=== PATIENT | female | born 1975 | race Two or more races ===

== ENCOUNTER → 2016-11-24 | Outpatient (REF) ==
--- NOTE | 2016-11-25 03:14 | REP ---
Clinical: Pain and disability. Comparison: 04/25/2016. Technique: AP, lateral, and coned-down views of the lumbosacral spine. Findings: Mild to moderate multilevel degenerative disc osteophyte complexes are again noted most pronounced at the L3-4 level. Findings are essentially unchanged and include anterior spurring/osteophyte formation, endplate sclerosis, disc space narrowing and hypertrophic facet changes. Alignment and lordosis maintained. There is no evidence for acute fracture / compression injury or subluxation. Impression: Mild to moderate degenerative disc osteophyte complexes similar to prior examination. Signed by Anton Clay MD 11/25/2016 03:07 A
== END ==
LOC: M SMT 13:55
PROVIDERS: ATTEND Internal Medicine
DX: Z00.00 Encounter for general adult medical examination without abnormal findings (principal)

== ENCOUNTER → 2017-06-28 | Outpatient (REF) | payer MEDICAID, OTHER | LOC: M SMT 13:10 | PROVIDERS: ATTEND Nurse Practitioner Women's Health | DX: N39.46 Mixed incontinence (principal) ==

== ENCOUNTER → 2017-12-03 | Outpatient (REF) | payer OTHER, MEDICAID ==
[2017-12-03 16:56] LABS: ERYTHROCYTE SEDIMENTATION RATE 37 mm/hr (0-20)
[2017-12-03 18:54] LABS: C REACTIVE PROTEIN QUANTITATIV < 0.30 MG/DL (0.00-0.30)
== END ==
LOC: M LABDRAW1 11:30
DX: M51.36 Other intervertebral disc degeneration, lumbar region (principal)

== ENCOUNTER → 2020-06-26 | Outpatient (CLI) | payer OTHER, MEDICAID ==
[2020-06-26 14:40] LABS: ALBUMIN 3.4 GM/DL (3.2-5.2); ALT/SGPT 35 U/L (12-78); BILIRUBIN,TOTAL 0.3 MG/DL (0.2-1.0); BLOOD UREA NITROGEN 12 MG/DL (7-18); CALCIUM LEVEL 8.4 MG/DL (8.5-10.1); CARBON DIOXIDE LEVEL 32 MEQ/L (21-32); CHLORIDE LEVEL 108 MEQ/L (98-107); CREATININE FOR GFR 0.86 MG/DL (0.55-1.30); GLOMERULAR FILTRATION RATE > 60.0 (>58); GLUCOSE, FASTING 109 MG/DL (70-100); POTASSIUM SERUM 4.8 MEQ/L (3.5-5.1); SODIUM LEVEL 141 MEQ/L (136-145); TOTAL PROTEIN 7.1 GM/DL (6.4-8.2)
== END ==
LOC: M PLALAB 12:04
PROVIDERS: ATTEND Physician Assistant
DX: M51.27 Other intervertebral disc displacement, lumbosacral region (principal)

== ENCOUNTER → 2023-11-05 | Outpatient (CLI) | payer BC, OTHER | LOC: M PLALAB 12:29 | PROVIDERS: ATTEND Physical Medicine & Rehabilitation | DX: M54.16 Radiculopathy, lumbar region (principal) ==

== ENCOUNTER → 2025-07-25 | Outpatient (REF) | LOC: M PLAIMG 13:26 | PROVIDERS: ATTEND Internal Medicine | DX: R52 Pain, unspecified (principal) ==